=== PATIENT | male | born 1995 | race Caucasian/White ===

== ENCOUNTER 2020-12-24 13:01 | Inpatient (IN) ==
[2020-12-24] MEDS ORDERED: 0.9 % Sodium Chloride 1,000 ML IVC ONE (13:35)
[2020-12-24] MEDS ORDERED: 0.9 % Sodium Chloride 1,000 ML IVC SCH ×2 (13:45→18:15)
[2020-12-24 14:17] LABS: Basophils % 0.1 %; Hematocrit 49.1 % (37.5-50.1); Hemoglobin 16.6 g/dL (12.9-16.9); Lymphocytes # 0.8 K/mcL (0.6-4.6); Lymphocytes % 11.2 %; Mean Corpuscular HGB Conc 33.8 g/dL (31.6-35.5); Mean Corpuscular Hemoglobin 29.1 pg (28.0-33.3); Mean Corpuscular Volume 86.1 fL (83.0-100.0); Mean Platelet Volume 9.5 fL (9.4-12.4); Monocytes # 0.4 K/mcL (0.0-1.3); Monocytes % 6.4 %; Neutrophils # 5.4 K/mcL (1.6-8.9); Platelet Count 282 K/mcL (140-400); Red Cell Distribution Width 12.1 % (11.5-14.5); Segmented Neutrophils % 81.3 %; White Blood Count 6.7 K/mcL (4.3-11.1)
[2020-12-24 14:33] LABS: Prothrombin Time 16.2 Seconds (9.4-12.1)
[2020-12-24 14:34] LABS: Activated Partial Thrombo Time 33.7 Seconds (26.0-36.0); INR 1.4
[2020-12-24 14:35] LABS: Alanine Aminotransferase 74 Units/L (7-52); Albumin 3.8 g/dL (3.5-5.7); Alkaline Phosphatase 51 Units/L (34-104); Aspartate Amino Transferase 102 Units/L (13-39); BUN/Creatinine Ratio 18 (6-26); Bilirubin,Direct 0.2 mg/dL (0.0-0.2); Bilirubin,Indirect 0.3 mg/dL (0.0-1.0); Bilirubin,Total 0.5 mg/dL (0.3-1.0); Blood Urea Nitrogen 19 mg/dL (6-20); Calcium 8.7 mg/dL (8.6-10.3); Carbon Dioxide 26 mEq/L (23-29); Chloride 95 mEq/L (98-107); Globulin 3.7 g/dL (2.4-3.5); Glucose 100 mg/dL (70-105); Magnesium 2.1 mg/dL (1.6-2.6); Osmolality,Calculated 276 (280-300); Phosphorous 3.7 mg/dL (2.7-4.5); Potassium 4.2 mEq/L (3.5-5.1); Sodium 132 mEq/L (136-145); Total Protein 7.5 g/dL (6.4-8.9); eGFR For African Americans > 60 (> 60); eGFR For Non-African Americans > 60 (> 60)
[2020-12-24] MEDS ORDERED: Dexamethasone 4 MG/ML VIAL IVP ONE (16:08)
[2020-12-24 17:50] LABS: Lactate Dehydrogenase 813 Units/L (140-271)
[2020-12-24] MEDS ORDERED: MOM Conc 10 ML UD.LIQ PO PRN (17:50)
[2020-12-24] MEDS ORDERED: Ondansetron 4 MG/2 ML VIAL IVP PRN (17:50)
[2020-12-24] MEDS ORDERED: Melatonin 3 MG TABLET PO PRN (17:50)
[2020-12-24] MEDS ORDERED: Naloxone 0.4 MG/ML INJ IVP PRN (17:50)
[2020-12-24] MEDS ORDERED: Acetaminophen 325 MG TABLET PO PRN (17:50)
[2020-12-24] MEDS ORDERED: Mag Hydrox/Al Hydrox/Simeth 30 ML UDC PO PRN (17:50)
[2020-12-24] MEDS ORDERED: Isovue-370 500 ML BOTTLE IVP ONE (17:56)
[2020-12-24] MEDS ORDERED: Benzonatate 100 MG CAPSULE PO PRN (17:59)
[2020-12-24] MEDS ORDERED: ALPRAZolam 0.25 MG TABLET PO PRN (18:10)
[2020-12-24] MEDS ORDERED: Furosemide 40 MG/4 ML VIAL IVP ONE (21:37)
[2020-12-24 22:42] VITALS: BP 111/79
[2020-12-25] MEDS ORDERED: *HR* Enoxaparin 40 MG/0.4 ML SYRINGE SQ SCH (06:00)
[2020-12-25] MEDS ORDERED: Dexamethasone 4 MG/ML VIAL IVP SCH (09:00)
== END 2020-12-25 00:27 | disposition short-term general hospital (02) | DRG 177 ==
LOC: EMEROOPIK 13:01 → INPPIK 13:01
PROVIDERS: ADMIT Family Medicine; ATTEND Family Medicine